=== PATIENT | female | born 1960 | race Caucasian/White ===

== ENCOUNTER 2017-05-06 21:21 | Emergency (ER) | payer OTHER ==
[~2017-05-06] VITALS: Ht 152.4 cm; Wt 70.0 kg
[~2017-05-06 21:21] MED LIST: ALBU8.5H3 INH; ATEN-51 PO; AZIT250T94 PO; CETI10CA PO; METH10TA5 PO; PRED20TA PO
[2017-05-06 21:30] VITALS: Ht 152.4 cm; Wt 70.0 kg
--- NOTE | 2017-05-07 02:20 | ERD ---
ER Documentation Chief Complaint Chief Complaint bib self, cc: diarrhea after taking amoxicillin for 3 days, has [id number] HPI 57-year-old female complaining of diarrhea 2 days. Patient states that she was prescribed amoxicillin for rhonchi despite her PCP. She took amoxicillin for 4 days when she started having diarrhea. She stopped the amoxicillin yesterday. She had about 5 episodes diarrhea today. She also noticed some blood on her rectum when she is wiping. Denies fever or chills. Denies abdominal pain or vomiting. Denies cough or runny nose. Denies black or maroon stools. ROS All systems reviewed and are negative except as per history of present illness. Medications Home Meds Active Scripts Azithromycin* (Zithromax*) 250 Mg Tablet, 250 MG PO .ZPACK DIRECTED, #6 TAB TAKE 500 MG (2 TABS) THE FIRST DAY THEN 250 MG (1 TAB) DAYS 2-5 Prov:CLAUDIA MATOS MD 01/07/15 Cetirizine Hcl* (Zyrtec*) 10 Mg Capsule, 10 MG PO DAILY, #30 TAB.CHEW Prov:CLAUDIA MATOS MD 01/07/15 Albuterol Sulfate* (Proair HFA*) 8.5 Gm Hfa.aer.ad, 2 PUFF INH Q4 for 14 Days, INH Prov:CLAUDIA MATOS MD 01/07/15 Prednisone* (Prednisone*) 20 Mg Tab, 40 MG PO DAILY for 5 Days, TAB Prov:CLAUDIA MATOS MD 01/07/15 Reported Medications Methimazole* (Methimazole*) 10 Mg Tablet, 10 MG PO BID 07/11/12 Atenolol* (Atenolol*) 25 Mg Tablet, 25 MG PO DAILY 04/25/12 Allergies Allergies: Uncoded Allergies: UNKN THYROID MEDICATION (Allergy, 04/25/12) PMhx/Soc History of Surgery: No Anesthesia Reaction: No Hx Neurological Disorder: No Hx Respiratory Disorders: No Hx Cardiac Disorders: Yes (HTN. HYPERTHYROID) Hx Psychiatric Problems: No Hx Miscellaneous Medical Probl: No Hx Alcohol Use: No Hx Substance Use: No Hx Tobacco Use: No Smoking Status: Never smoker Physical Exam Vitals Vital Signs Date Time Temp Pulse Resp B/P Pulse Ox O2 Delivery O2 Flow Rate FiO2 05/06/17 21:30 98.5 62 18 138/87 100 Physical Exam General: Well-developed, well-nourished, conscious and coherent, in no distress Skin: Warm and dry without rash, good texture and turgor Head: Normocephalic without evidence of trauma Eyes: Sclera and conjunctivae normal; pupils equal, round, and reactive to light; extraocular movements are intact Chest: Normal AP diameter. Good expansion without retractions. Nontender. Lungs are clear to auscultate bilaterally with good tidal volume Heart: Regular rate and rhythm. No murmur, rub, or gallops heard Abdomen: Soft and nontender without masses, guarding, or rebound. Bowel sounds are active. No hepatosplenomegaly Back: Without spinal or CVA tenderness Pelvis: Nontender to palpation and stable to compression Extremities: Full range of motion. Good strength bilaterally. No clubbing, cyanosis, or edema. Peripheral pulses are intact. Sensation intact Neuro: Alert and oriented 4, GCS 15. Cranial nerves grossly intact. Motor and sensory exams nonfocal. Moves all extremities. Speech clear. Gait normal Procedures/MDM Appearing 57-year-old female presented ED with diarrhea after antibiotic use. I advised patient that diarrhea is a common side effect of taking antibiotics. Patient has no sign of dehydration, she is able to maintain p.o. fluid intake. I doubt acute appendicitis, cholecystitis, or other acute abdomen. I doubt hemolytic uremic syndrome. Patient appears well, stable for discharge and outpatient management. She is advised to eat a bland diet for next several days, and maintain p.o. fluid intake. Medical decision making shared with patient and family. Education provided to patient and family. Patient and family expressed understanding of the plan. Medications on discharge: None Follow-up: Primary care provider in 2-3 days or return to ED if worse. Disclaimer: Inadvertent spelling and grammatical errors are likely due to EHR/ dictation software use and do not reflect on the overall quality of patient care. Also, please note that the electronic time recorded on this note does not necessarily reflect the actual time of the patient encounter. Departure Diagnosis: Primary Impression: Diarrhea Condition: Stable Patient Instructions: Treating Diarrhea Referrals: MANI SIDDIQI MD (PCP) Additional Instructions: Call your primary care doctor TOMORROW for an appointment during the next 2-3 days.See the doctor sooner or return here if your condition worsens before your appointment time. KYLE LAKHANI. LORAINE May 07, 2017 02:20
== END 2017-05-06 23:16 | disposition home or self-care (01) ==
LOC: FTE 21:21
DX: R19.7 Diarrhea, unspecified (principal); I10 Essential (primary) hypertension
CPT/HCPCS: 99282

== ENCOUNTER 2018-03-29 06:13 | Day surgery (SDC) | END 2018-03-29 12:49 | disposition home or self-care (01) ==

== ENCOUNTER 2018-11-04 22:06 | Emergency (ER) | payer OTHER ==
[~2018-11-04] VITALS: Ht 157.5 cm; Wt 62.6 kg
[~2018-11-04 22:06] MED LIST changes: -ALBU8.5H3 INH; -ATEN-51 PO; -AZIT250T94 PO; -CETI10CA PO; +HYDR25TA6 PO; -PRED20TA PO
[2018-11-04 22:51] VITALS: Ht 157.5 cm; Wt 62.6 kg
[2018-11-05] MEDS ORDERED: LORA1TAB PO (03:51)
--- NOTE | 2018-11-05 03:53 | ERD ---
ER Documentation Chief Complaint Chief Complaint weakness and numbness on josselyn hands and feet x 3 days HPI Is a 4-year-old female complains of bilateral hand and feet weakness and numbness. She also complains of mild perioral numbness. Upon further questioning, patient has been under a lot of stress lately. Denies suicidal homicidal ideation. Denies any focal neurologic complaints. Denies any auditory or visual hallucinations. ROS All systems reviewed and are negative except as per history of present illness. Medications Home Meds Active Scripts Lorazepam* (Lorazepam*) 1 Mg Tablet, 1 MG PO Q8H PRN for ANXIETY, #10 TAB Prov:VIVIAN PARSON 11/05/18 Reported Medications Hydrochlorothiazide* (Hydrochlorothiazide*) 25 Mg Tab, 25 MG PO DAILY, #30 TAB 03/29/18 Methimazole* (Methimazole*) 10 Mg Tablet, 10 MG PO DAILY, TAB 03/29/18 Allergies Allergies: Uncoded Allergies: UNKN THYROID MEDICATION (Allergy, Unknown, 03/28/18) PMhx/Soc History of Surgery: Yes (facial lift, abd mass resection, tot hysterectomy) Anesthesia Reaction: No Hx Neurological Disorder: No Hx Respiratory Disorders: No Hx Cardiac Disorders: Yes (htn, water retention) Hx Psychiatric Problems: No Hx Miscellaneous Medical Probl: Yes (osteoporosis) Hx Alcohol Use: No Hx Substance Use: No Hx Tobacco Use: No Smoking Status: Never smoker Physical Exam Vitals Vital Signs Date Temp Pulse Resp B/P (MAP) Pulse Ox O2 O2 Flow FiO2 Time Delivery Rate 11/04/18 97.5 60 20 160/79 98 22:51 (106) Physical Exam Const: No acute distress Head: Atraumatic Eyes: Normal Conjunctiva ENT: Normal External Ears, Nose and Mouth. Neck: Full range of motion. No meningismus. Resp: Clear to auscultation bilaterally Cardio: Regular rate and rhythm, no murmurs Abd: Soft, non tender, non distended. Normal bowel sounds Skin: No petechiae or rashes Back: No midline or flank tenderness Ext: No cyanosis, or edema Neur: Awake and alert Psych: Normal Mood and Affect Result Diagram: 11/05/18 0110 11/05/18 0110 Results 24 hrs Laboratory Tests Test 11/05/18 01:10 White Blood Count 6.0 10^3/ul Red Blood Count 4.59 10^6/ul Hemoglobin 13.8 g/dl Hematocrit 41.1 % Mean Corpuscular Volume 89.5 fl Mean Corpuscular Hemoglobin 30.1 pg Mean Corpuscular Hemoglobin Concent 33.6 g/dl Red Cell Distribution Width 12.7 % Platelet Count 237 10^3/UL Mean Platelet Volume 10.0 fl Immature Granulocytes % 0.200 % Neutrophils % 53.4 % Lymphocytes % 37.6 % Monocytes % 6.6 % Eosinophils % 1.5 % Basophils % 0.7 % Nucleated Red Blood Cells % 0.0 /100WBC Immature Granulocytes # 0.010 10^3/ul Neutrophils # 3.2 10^3/ul Lymphocytes # 2.3 10^3/ul Monocytes # 0.4 10^3/ul Eosinophils # 0.1 10^3/ul Basophils # 0.0 10^3/ul Nucleated Red Blood Cells # 0.0 10^3/ul Prothrombin Time 11.6 Sec Prothrombin Time Ratio 0.9 INR International Normalized Ratio 0.84 Activated Partial Thromboplast Time 27.3 Sec Sodium Level 141 mmol/L Potassium Level 3.3 mmol/L Chloride Level 102 mmol/L Carbon Dioxide Level 34 mmol/L Anion Gap 5 Blood Urea Nitrogen 19 mg/dl Creatinine 0.70 mg/dl Est Glomerular Filtrat Rate mL/min > 60 mL/min Glucose Level 91 mg/dl Calcium Level 10.1 mg/dl Troponin I < 0.012 ng/ml Procedures/[facility] EKG: Rate/Rhythm: [Normal Sinus Rhythm] QRS, ST, T-waves: [No changes consistent w/ acute ischemia] Impression: [No evidence of ischemia or arrhythmia] Chest X-ray 1V Interpreted by me: Soft Tissue: No acute abnormalities Bones: No acute abnormalities Mediastinum/Cardiac Silhouette/Lungs: [No acute abnormalities] Medical decision m[age]-year-old female here with multiple complaints likely secondary to anxiety. At this point patient is clinically stable for outpatient management. Patient will be discharged home with short course of lorazepam. She is been advised follow-up with her primary care physician. Return to ER for worsening symptoms. Departure Diagnosis: Primary Impression: Anxiety Condition: Stable Patient Instructions: Anxiety Reaction VIVIAN PARSON November 05, 2018 03:53
[2018-11-05 04:07] VITALS: BP 132/87; PULSE 56; RESP 13
== END 2018-11-05 04:09 | disposition home or self-care (01) ==
LOC: E/R 22:06
DX: F41.9 Anxiety disorder, unspecified (principal); I10 Essential (primary) hypertension; R51 Headache
CPT/HCPCS: 36415; 70450; 71045; 80048; 84484; 85025; 85610; 85730; 93005; Z7502